=== PATIENT | female | born 1985 | race Caucasian/White ===

== ENCOUNTER → 2022-01-25 09:00 | Outpatient (CLI) | payer OTHER, SELFPAY ==
[2022-01-25 10:29] LABS: HCG Quantitative /Beta subunit 67642 mIU/mL
== END ==
PROVIDERS: Referring Provider Obstetrics & Gynecology; Visit Provider Obstetrics & Gynecology
DX: N91.2 Amenorrhea, unspecified (principal); Z32.01 Encounter for pregnancy test, result positive
CPT/HCPCS: 36415; 84702